=== PATIENT | male | born 1935 | race Caucasian/White ===

== ENCOUNTER 2019-11-09 11:11 | Inpatient (IN) ==
[2019-11-09] MEDS ORDERED: GUAIFENESIN/DEXTROM SYRUP 100MG/10MG 5ML UDC PO PRN (13:35)
[2019-11-09] MEDS ORDERED: ONDANSETRON INJ 2 MG/ML 2 ML VIAL IV PRN (13:35)
[2019-11-09] MEDS ORDERED: POLYETHYLENE (MIRALAX) 17 GM PACK PO PRN (13:35)
--- NOTE | 2019-11-09 13:44 | History & Physical Report ---
Date of Service November 09, 2019 Assessment & Plan (1) Aspiration pneumonia: Patient with suspected aspiration pneumonia versus pneumonitis. Presently afebrile, hemodynamically stable. He is hypoxic requiring supplemental oxygen currently 92% on oxygen mask 9 L. He does not appear to be volume overloaded on clinical exam. BNP within normal range at 365. ABG with hypoxia, pH = 7.43, PCO2 = 38, PO2 = 72 Admit to PCU Images from outside hospital sent to radiology to be loaded into our system. Patient has recent CT of the chest. Supplemental oxygen to maintain saturation greater than 92% Zosyn 4.5 g IV every 8 hours Robitussin 5 mL p.o. every 6 hours as needed Flutter valve 3 times daily -Patient is DNR/DNI per his wishes. This was confirmed with patient's sister at bedside during time of admission. She understands that patient's clinical condition may worsen. I explained to her that we may use NIPPV to support the patient through his current illness, but it is typically not preferred over intubation in case of aspiration with respiratory failure. Patient sister voiced understanding and states that she will continue to uphold patient's wishes and keep him DNR/DNI. Check VBG with a.m. labs Present on Admission?: Yes (2) Seizure: Patient with history of epilepsy. No recent seizures reported. Continue Keppra 500 mg p.o. twice daily Continue diazepam 5 mg p.o. twice daily Present on Admission?: Yes (3) Diabetes: Patient with reported history of diabetes. Not currently on any diabetic medication. Glucose = 182 Insulin sliding scale Continue to monitor Present on Admission?: Yes (4) Macrocytosis: Hgb = 14, HCT slightly low at 41.3. MCV elevated at 103.3. Patient is on vitamin B12 at home Check B12 level Continue supplementation 1000 mcg daily F/E/N -gentle IV fluids normal saline at 50 mL/h x 1 L, monitor electrolytes and replete as needed, patient given phosphorus repletion, n.p.o. for now. May advance diet when patient's respiratory status improves Prophylaxisheparin for DVT prophylaxis CodeDNR/DNI Dispositionadmit to PCU History of Present Illness Chief Complaint: Aspiration pneumonia, transferred from outside facility Primary Care Provider: NO PCP Cheryle De Souza is an 84-year-old male with history of diabetes, hyperlipidemia and epilepsy. He resides in a personal fci. On the morning of 11/05 he was found down on the floor, calling for help, and noted to be slightly confused. He was transported to an outside facility in [place] and was admitted for ambulatory dysfunction and presumed UTI. He was briefly treated with Rocephin for UTI. He had transient hypoxic episodes which was thought to be secondary to volume overload, therefore he was diuresed with Lasix. His hypoxia worsened yesterday through today, patient also febrile to 100.9. A CT of the chest was obtained today which was suggestive of aspiration pneumonia. The patient was treated with cefepime and Flagyl and was subsequently transferred to [facility] for pulmonary support. Upon arrival, patient mildly tachypneic saturating 92% on nonrebreather. He has no complaints. Specifically denies chest pain, palpitations, abdominal pain, nausea, vomiting, diarrhea, constipation Allergies Allergy/AdvReac Type Severity Reaction Status Date / Time No Known Allergies Allergy Unverified 11/09/19 14:50 Home Medications Home Medications Medication Instructions Recorded Confirmed Type Lactobacillus acidoph-L. bifid 2 tab PO BID 11/09/19 11/09/19 History Lasix 20 mg IV BID 11/09/19 11/09/19 History acetaminophen [Pain Relief] 650 mg PO Q6H PRN 11/09/19 11/09/19 History albuterol sulfate 2.5 mg INHALATION USEASDIRECTD PRN 11/09/19 11/09/19 History atorvastatin 80 mg PO HS 11/09/19 11/09/19 History cefepime in dextrose 5 % See Rx Instructions .ROUTE .COMPLEX 11/09/19 11/09/19 History cyanocobalamin (vitamin B-12) 1,000 mcg PO DAILY 11/09/19 11/09/19 History diazepam 5 mg PO BID 11/09/19 11/09/19 History enoxaparin [Lovenox] 40 mg SUBCUT DAILY 11/09/19 11/09/19 History haloperidol 0.5 mg PO DAILY 11/09/19 11/09/19 History levetiracetam 500 mg PO BID 11/09/19 11/09/19 History metronidazole in NaCl (iso-os) 500 mg IV Q8H 11/09/19 11/09/19 History polyethylene glycol 3350 [Miralax] 17 g PO DAILY PRN 11/09/19 11/09/19 History potassium chloride 40 meq PO DAILY 11/09/19 11/09/19 History tamsulosin 0.4 mg PO DAILY 11/09/19 11/09/19 History Past Med/Surg History Medical History (Updated 11/09/19 @ 22:10 by Awilda Quiroz DO) Aortic stenosis Diabetes Dyslipidemia Seizure Surgical History (Updated 11/09/19 @ 21:55 by Awilda Quiorz DO) History of ankle surgery Family History (Updated 11/09/19 @ 13:54 by Sri Weir RN) Other No history of previous surgery No known health problems Social History Preferred Language: Khmer Communication Ability: Effective 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 Beliefs That Will Affect Care: None Current Living Situation: Care Home Other Information That Helps Us Care for You: No Feels Safe at Home: Yes Safety Concerns: Feels Safe At This Time Smoking Status: Never smoker Hx Alcohol Use: No Hx Substance Use: No Review of Systems Review of Systems: All systems reviewed & are unremarkable except as noted in HPI & below Physical Exam Physical Exam: General: patient resting comfortably, NAD, non-toxic in appearance, AA&O to self and location Skin: warm, dry, intact, no rashes or lesions HEENT: NC/AT, left eye with disconjugate gaze, pupils irregular and nonreactive to light (sister states this is baseline), EOMI, anicteric sclera, conjunctiva without injection, external ear normal to inspection and nontender, nares patent, dry mucus membranes, dentition intact, no oropharyngeal lesions, neck supple, trachea midline, no LAD, no thyromegaly, no JVD Heart: +S1/S2, regular, no m/r/g Lungs: equal air entry bilaterally, coarse breath sounds in the right lung, + rhonchi Abd: +BS, soft, NT/ND, no masses/organomegaly/ascites, Silverio catheter in place with minimal dark urine in the bag Ext: warm, 2+ pulses in UE/LE bilaterally, no clubbing/cyanosis or edema Neuro: nonfocal, patient AA&O x 4, speech intact, no facial droop, moving all extremities on command with equal strength 5/5 Results & Data Vital Signs (Past 12 Hours) Vital Signs Height Weight Body Mass Index Blood Pressure Blood Pressure Position Temperature Temperature Source 5 ft 8 in 81.4 kg 27.3 105/67 Lying 36.9 C Axillary 11/09/19 13:32 11/09/19 13:32 11/09/19 13:32 11/09/19 19:25 11/09/19 19:25 11/09/19 19:25 11/09/19 19:25 Pulse Rate Respiratory Rate Pulse Oximetry Oxygen Flow Rate 98 H 20 92 9 11/09/19 19:25 11/09/19 19:25 11/09/19 19:25 11/09/19 19:25 Laboratory Results SINGLE VIEW CHEST CLINICAL HISTORY: Pneumonia. Cough and chest congestion. FINDINGS: An AP, portable, upright chest radiograph is compared to study dated 11/07/2019 and correlated with chest CT performed the same day 11/09/2019. The examination is degraded by portable technique and patient rotation. The heart is mildly enlarged noting atherosclerotic calcification of the thoracic aorta. There is dense bibasilar consolidation, right greater than left with associated pleural effusions. No pneumothorax is seen. The skeletal structures are osteopenic. The bony thorax is grossly intact. Degenerative change is noted in the thoracic spine. IMPRESSION: 1. Cardiomegaly without radiographic evidence of congestive failure. 2. There is bibasilar consolidation, right greater than left with small pleural effusions. ACT 112: Negative or not required by law. Electronically signed by: Juan Miguel Chandler M.D. 11/09/2019 2:54 PM Diagnostic Findings FROM OUTSIDE FACILITY: Chest CT 11/09/19 -Findings concerning for bibasilar aspiration PNA predominantly in RLL with non cleared secretions throughout the right lobe bronchus -Indeterminate pulmonary nodule projecting in the lingula measuring up to 9mm. Consider PET-CT or repeat CT in 6-12 weeks ECG Additional Comments: EKG with normal sinus rhythm at 94 bpm, left axis deviation, NH = 124, QRS = 104, QTC = 437, no acute ischemic changes Code Status & VTE Plan Code Status DNR/DNI VTE Prophylaxis Plan VTE Prophylaxis will be ordered: Yes PG Care Time/CCT Total # of Minutes Spent Total Time Spent with Patient: Total time spent is greater than 50% in coordination of care (as documented) at patient's floor/unit and/or counseling patient: (1) Aspiration pneumonia Aspiration pneumonia type: unspecified Laterality: right Lung location: lower lobe of lung Qualified Code(s): J69.0 - Pneumonitis due to inhalation of food and vomit (2) Diabetes Diabetes mellitus type: type 2 Diabetes mellitus model builder insulin use: without model builder use Diabetes mellitus complication status: without complication Qualified Code(s): E11.9 - Type 2 diabetes mellitus without complications
[2019-11-09 14:09] LABS: Basophils # (auto) 0.03 K/uL (0-0.2); Basophils % (auto) 0.3 %; Hematocrit (blood only) 41.3 % (42-52); Immature Granulocytes # (auto) 0.02 K/uL (0.00-0.02); Immature Granulocytes % (auto) 0.2 %; Lymphocytes # (auto) 1.19 K/uL (1.2-3.4); Lymphocytes % (auto) 11.6 %; Mean Corpuscular Hgb Conc 33.9 g/dL (32-36); Mean Corpuscular Volume 103.3 fL (80-100); Mean Platelet Volume 10.5 fL (7.4-10.4); Monocytes # (auto) 1.18 K/uL (0.11-0.59); Monocytes % (auto) 11.5 %; Neutrophils % (auto) 76.4 %; Platelet Count 173 K/uL (130-400); RDW Standard Deviation 49.5 fL (36.4-46.3); White Blood Count 10.22 K/uL (4.8-10.8)
[2019-11-09] MEDS ORDERED: ALBUTEROL 0.5% NEB SOLN 2.5 MG/0.5 ML VIAL NEB PRN (14:10)
[2019-11-09 14:11] LABS: Allen Test Pos (Pos); Base Excess ABG 0.7 mEq/L (-9-1.8); HCO3 ABG 25 mmol/L (19-24); Oxygen Saturation ABG 95.1 % (90-95); PCO2 ABG 38 mmHg (35-46); PO2 ABG 72 mm/Hg (80-95); pH ABG 7.43 (7.35-7.45)
[2019-11-09] MEDS ORDERED: PIPERACILL/TAZOBAC CONSULT ACTIVE PRN (14:16)
[2019-11-09 14:17] LABS: INR 1.2 (0.9-1.1); Prothrombin Time 12.2 Seconds (9.0-12.0)
[2019-11-09 14:27] LABS: Albumin Level 2.4 gm/dl (3.4-5.0); BUN Creatinine Ratio 33.7 (10-20); Bilirubin Direct 0.2 mg/dl (0-0.2); Calcium 8.8 mg/dl (8.5-10.1); Creatinine Clr Calc Pharmacy 44.1 ml/min; Est GFR (African American) 61.8; Est GFR (Non-African American) 53.3; Potassium 3.8 mmol/L (3.5-5.1)
[2019-11-09 14:29] LABS: Magnesium 2.3 mg/dl (1.8-2.4); Phosphorus 2.2 mg/dl (2.5-4.9)
[2019-11-09 14:32] LABS: Bilirubin,Total 0.9 mg/dl (0.2-1); Total Protein 6.7 gm/dl (6.4-8.2); Troponin I 0.033 ng/ml (0-0.045)
--- NOTE | 2019-11-09 14:55 | XRay Report ---
SINGLE VIEW CHEST CLINICAL HISTORY: Pneumonia. Cough and chest congestion. FINDINGS: An AP, portable, upright chest radiograph is compared to study dated 11/07/2019 and correla vanessa with chest CT performed the same day 11/09/2019. The examination is degraded by portable techniqu e and patient rotation. The heart is mildly enlarged noting atherosclerotic calcification of the thor acic aorta. There is dense bibasilar consolidation, right greater than left with associated pleural e ffusions. No pneumothorax is seen. The skeletal structures are osteopenic. The bony thorax is grossly intact. Degenerative change is noted in the thoracic spine. IMPRESSION: 1. Cardiomegaly without radiographic evidence of congestive failure. 2. There is bibasilar consolidation, right greater than left with small pleural effusions. ACT 112: Negative or not required by law. Electronically signed by: Juan Miguel Chandler M.D. 11/09/2019 2:54 PM
[2019-11-09] MEDS ORDERED: PIPERACILLIN/TAZOBACTAM 4.5 GM in DEXTROSE 5% 100 ML IV ONE (15:00)
[2019-11-09] MEDS ORDERED: NON-FORMULARY MEDICATION (Acetaminophen [Pain Relief] 650 MG) PO PRN (15:06)
[2019-11-09] MEDS ORDERED: POTASSIUM PHOS 3 MMOL/1 ML INFUSION IV STA (15:07)
[2019-11-09] MEDS ORDERED: PATIENT'S ALLERGY INFO NEEDS ENTERED SCH (15:30)
[2019-11-09] MEDS ORDERED: POTASSIUM PHOSPHATE 9 MMOL in SODIUM CHLORIDE 0.9% 250 ML IV ONE (16:00)
[2019-11-09] MEDS ORDERED: ALBUMIN 25% 50 ML IV ONE (16:00)
[2019-11-09] MEDS: HEPARIN SOD 5,000 UNIT/0.5 ML VIAL SQ SCH ×2 (16:07→20:44)
[2019-11-09] MEDS: levETIRAcetam 500 MG TAB PO SCH (17:37)
[2019-11-09] MEDS: LACTOBACILLUS ACIDOPHILUS (FLORANEX) TAB PO SCH ×2 (17:37→17:53)
[2019-11-09] MEDS: PIPERACILLIN/TAZOBACTAM 3.375 GM in DEXTROSE 5% 100 ML IV SCH (20:43)
[2019-11-09] MEDS: ATORVASTATIN 40 MG TAB PO SCH (20:44)
[2019-11-09] MEDS: diazePAM 5 MG TABLET PO SCH (20:44)
[2019-11-09] MEDS ORDERED: DEXTROSE 50% 50 ML SYRINGE IV PRN (22:13)
[2019-11-09] MEDS ORDERED: GLUCAGON FOR INJ 1 MG VIAL SQ PRN (22:13)
[2019-11-09] MEDS ORDERED: GLUCOSE 10 TABS/TUBE PO PRN (22:13)
[2019-11-09] MEDS ORDERED: GLUCOSE 40% GEL 15 GM TUBE PO PRN (22:13)
[2019-11-09] MEDS ORDERED: CARBOHYDRATES FOR HYPOGLYCEMIA PO PRN (22:13)
[2019-11-09] MEDS ORDERED: SODIUM CHLORIDE 0.9% 1000ML 1,000 ML IV SCH (22:15)
[2019-11-10] MEDS: INSULIN ASPART 100 UNITS/ML 3 ML PEN SC SCH ×5 (00:02→23:29)
[2019-11-10] MEDS: PIPERACILLIN/TAZOBACTAM 3.375 GM in DEXTROSE 5% 100 ML IV SCH ×3 (03:47→21:02)
[2019-11-10] MEDS: HEPARIN SOD 5,000 UNIT/0.5 ML VIAL SQ SCH ×3 (05:14→20:55)
[2019-11-10 07:20] LABS: pH VBG 7.43 (7.36-7.41)
[2019-11-10 07:49] LABS: Basophils # (auto) 0.02 K/uL (0-0.2); Basophils % (auto) 0.1 %; Eosinophils # (auto) 0.01 K/uL (0-0.5); Eosinophils % (auto) 0.1 %; Hematocrit (blood only) 38.3 % (42-52); Hemoglobin 12.9 g/dL (14.0-18.0); Immature Granulocytes # (auto) 0.04 K/uL (0.00-0.02); Immature Granulocytes % (auto) 0.3 %; Lymphocytes # (auto) 1.02 K/uL (1.2-3.4); Lymphocytes % (auto) 7.2 %; Mean Corpuscular Hemoglobin 35.4 pg (25-34); Mean Corpuscular Hgb Conc 33.7 g/dL (32-36); Mean Corpuscular Volume 105.2 fL (80-100); Mean Platelet Volume 10.7 fL (7.4-10.4); Monocytes % (auto) 9.1 %; Neutrophils # (auto) 11.82 K/uL (1.4-6.5); Neutrophils % (auto) 83.2 %; Platelet Count 186 K/uL (130-400); RDW Coefficient of Variation 13.3 % (11.5-14.5); RDW Standard Deviation 51.2 fL (36.4-46.3); Red Blood Count 3.64 M/uL (4.7-6.1); White Blood Count 14.21 K/uL (4.8-10.8)
[2019-11-10] MEDS: haloperidoL 0.5 MG TAB PO SCH (07:51)
[2019-11-10] MEDS: LACTOBACILLUS ACIDOPHILUS (FLORANEX) TAB PO SCH ×3 (07:51→15:23)
[2019-11-10] MEDS: levETIRAcetam 500 MG TAB PO SCH ×2 (07:51→15:23)
[2019-11-10] MEDS: CYANOCOBALAMIN 500 MCG TABLET (VITAMIN B-12) PO SCH (07:51)
[2019-11-10 07:53] LABS: BUN Creatinine Ratio 34.6 (10-20); Calcium 8.9 mg/dl (8.5-10.1); Creatinine Clr Calc Pharmacy 42.4 ml/min; Est GFR (African American) 58.9; Est GFR (Non-African American) 50.8; Potassium 3.9 mmol/L (3.5-5.1)
[2019-11-10] MEDS: diazePAM 5 MG TABLET PO SCH ×2 (07:53→21:02)
[2019-11-10 08:03] LABS: Thyroid Stimulating Hormone 0.256 uIu/ml (0.300-4.500)
[2019-11-10] MEDS ORDERED: ALBUT/IPRATROP 3MG/0.5MG NEB 3 ML VIAL NEB STA (08:52)
[2019-11-10] MEDS: ALBUT/IPRATROP 3MG/0.5MG NEB 3 ML VIAL NEB SCH ×4 (11:24→23:03)
--- NOTE | 2019-11-10 17:16 | Hospitalist Progress Note ---
Date of Service November 10, 2019 Assessment & Plan (1) Aspiration pneumonia: Dense right-sided pneumonia on imaging and exam. Continue Zosyn out of concern of aspiration. Speech eval and treat. Nebulizers, oxygen, supportive care, time. Of note he seems surprisingly asymptomatic for his degree of both relative and absolute hypoxia, begging the question of a chronic aspiration scenario where he has been running lower oxygen saturations that he would realize for quite a while. Follow this closely. Blood gases noted, no hypercapnia (2) Seizure: Patient with history of epilepsy. No seizures thus far with treatment/physiologic stress of pneumonia Continue Keppra 500 mg p.o. twice daily Continue diazepam 5 mg p.o. twice daily (3) Diabetes: Patient with reported history of diabetes. Not currently on any diabetic medication. Glucose = 182 Insulin sliding scale Glucose has thus far been acceptable, A1c pending (4) Macrocytosis: Hgb = 14, HCT slightly low at 41.3. MCV elevated at 103.3. Patient is on vitamin B12 at home B12 adequately replaced F/E/N -gentle IV fluids normal saline at 50 mL/h x 1 L, monitor electrolytes and replete as needed, patient given phosphorus repletion, n.p.o. for now. May advance diet when patient's respiratory status improves Prophylaxisheparin subcu for DVT prophylaxis CodeDNR/DNI Continue on PCU, he appears to be stabilizing, once he improves some we can start to work towards PT/OT and discharge planning. Subjective Seen multiple times throughout the day. Awake and alert. Denies shortness of breath even when in the high 80s on a nonrebreather. Does not have cough/sputum/wheezing/dyspnea. His only real complaint is whenever I follow-up in the afternoon he would like somebody to help him get up to go to the bathroom. No chest pain, no shortness of breath, no pain anywhere. Fortunately through the day his pulse ox is do show small improvements. Review of Systems Review of Systems: All systems reviewed & are unremarkable except as noted in HPI & below Physical Exam Physical Exam: In general he is awake and alert pleasant no distress, surprisingly given his respiratory status. HEENTnormocephalic atraumatic mucous membranes are moist, he has a large area on his left cheek that seems to be a large telangiectasia/hemangioma type structure. Cardio is distant slightly tachycardic. No rubs murmurs or gallops. Lungs markedly diminished throughout the right lung, clear in the left lung. No rales rhonchi or wheezes with good effort. No accessory muscle use. Just notably diminished throughout the right almost entirely. Abdomen soft nondistended nontender. Extremities show no cyanosis clubbing or edema. Results & Data Vital Signs (Past 12 Hours) Vital Signs Temp Pulse Pulse Resp BP Pulse Ox Pulse Ox 11/10/19 16:05 99.0 F 110 H 18 116/68 91 11/10/19 15:28 111 H 22 92 11/10/19 13:35 91 11/10/19 11:25 109 H 22 91 11/10/19 11:14 97.7 F 110 H 22 132/67 89 L 11/10/19 09:00 101 H 18 89 L 11/10/19 08:52 99.9 F H 105 H 22 100/62 88 L 11/10/19 08:03 97.9 F 103 H 20 119/65 91 11/10/19 08:00 95 H PG Care Time/CCT Total # of Minutes Spent Total Time Spent with Patient: Total time spent is greater than 50% in coordination of care (as documented) at patient's floor/unit and/or counseling patient: (1) Aspiration pneumonia Aspiration pneumonia type: unspecified Laterality: right Lung location: lower lobe of lung Qualified Code(s): J69.0 - Pneumonitis due to inhalation of food and vomit (2) Diabetes Diabetes mellitus type: type 2 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
[2019-11-10] MEDS ORDERED: OPTIRAY 320 125ml IV PRN (19:11)
--- NOTE | 2019-11-10 20:08 | CT Scan Report ---
CT ANGIOGRAM OF THE CHEST CLINICAL HISTORY: Hypoxia. COMPARISON STUDY: Chest x-ray dated 11/09/2019. Chest CT dated 11/09/2019. TECHNIQUE: Following the IV administration of 118 cc of Optiray 320, CT angiogram of the chest was pe rformed from the upper abdomen to the thoracic inlet utilizing the pulmonary embolus protocol. Images are reviewed in the axial, sagittal, and coronal planes. 3-D MIPS images are created and assessed. I V contrast was administered without complication. A dose lowering technique was utilized adhering to the principles of ALARA. The examination is degraded by motion artifact, as well as by streak artifa ct from the arms which could not be elevated above the chest. CT DOSE: 716.39 mGy.cm FINDINGS: Thyroid: The thyroid gland is enlarged and heterogeneous. Thoracic aorta: There is atherosclerotic calcification of the thoracic aorta, which is normal in [place] and demonstrates 4-vessel variant arch anatomy. No dissection is seen. Pulmonary vasculature: The pulmonary trunk is normal in caliber. There are no filling defects identif ied in main, lobar, or proximal segmental pulmonary branches to suggest pulmonary embolus. Evaluation of the peripheral branches is significantly degraded by motion artifact. Heart: The heart is enlarged and without pericardial effusion. The coronary arteries are densely calc ified. Lungs and pleural spaces: Evaluation of the lung parenchyma is compromised by motion artifact. There is dense airspace consolidation throughout the right lung with elevation of the right hemidiaphragm. There is only partial aeration at the right apex. Airspace consolidation and segmental atelectasis is seen in the left lower lobe. Minimal patchy consolidation is seen in the lingula. There is no pneumo thorax. Trace pleural effusion is seen on the left. Secretions/debris fills the right lower lobe airw ays. The trachea is clear. A 9 mm pulmonary nodule is seen in the lingula on image #66. Mediastinum: There are scattered subcentimeter mediastinal lymph nodes. Mandy: The right hilum is not well evaluated due to adjacent atelectasis. No left hilar adenopathy is seen. Axillae: There is no axillary lymphadenopathy. Upper abdomen: Partially visualized upper abdominal viscera is grossly unremarkable. Skeletal structures: The skeletal structures are osteopenic. Degenerative changes noted throughout th e thoracic spine and in the shoulders. No lytic or blastic bony lesions are seen. IMPRESSION: 1. Significantly streak and motion compromised examination. 2. There is no evidence of pulmonary embolus in the main, lobar, or proximal segmental pulmonary suraj camila. 3. Cardiomegaly. 4. There is dense airspace consolidation and volume loss seen throughout the right lung, which has si gnificantly progressed from yesterday. There is only minimally aerated lung at the right apex. Secret ions/debris is seen filling the right lower lobe airways. 5. Milder airspace consolidation is seen in the left lung with segmental atelectasis at the left lung base. 6. Findings are consistent with pneumonia/aspiration pneumonitis. Clinical correlation will be requir ed and follow-up to resolution is recommended. 7. There is a 9 mm pulmonary nodule in the lingula. This can be followed as per the Fleischner criter ia see below. Please refer to below summary of Fleischner criteria recommendations for follow-up of incidental CT n odules (Gab Stephen, Guidelines for management of small pulmonary nodules detected on CT scans: A sta tement from the Fleischner Society, Radiology 237: [id number].) SOLID NODULES Solitary nodule size: <6 mm * low risk patients: no follow-up needed * high risk patients: optional CT at 12 months Solitary nodule size: 6-8 mm * low risk patients: follow-up at 6-12 months, then consider further follow-up at 18-24 months * high risk patients: initial follow-up CT at 6-12 months and then at 18-24 months if no change Solitary nodule size: >8 mm * either low or high risk patients - consider follow-up CT at 3 months, and/or CT-PET, and/or biopsy Multiple nodules size: <6 mm * low risk patients: no routine follow-up * high risk patients: optional CT at 12 months Multiple nodules size: 6-8 mm * low risk patients: follow-up at 3-6 months, then consider further follow-up at 18-24 months * high risk patients: follow-up at 3-6 months, then at 18-24 months if no change Multiple nodules size: >8 mm * low risk patients: follow-up at 3-6 months, then consider further follow-up at 18-24 months * high risk patients: follow-up at 3-6 months, then at 18-24 months if no change Note: newly detected indeterminate nodule in persons 35 years of age or older. * low risk patients: minimal or absent history of smoking and/or other known risk factors * high risk patients: history of smoking or of other known risk factors (e.g. first degree relative with lung cancer, or exposure to asbestos, radon, uranium) * if a nodule up to 8 mm is partly solid or is ground glass further follow-up is required after 24 m onths to exclude possible slow growing adenocarcinoma (RAHAT) SUBSOLID NODULES Solitary pure ground-glass nodule * nodule size <6 mm - no CT follow-up required * nodule size >=6 mm - follow-up CT at 6-12 months, then every 2 years until 5 years Solitary part-solid nodule * nodule size <6 mm - no CT follow-up required * nodule size >=6 mm - follow-up CT at 3-6 months. If unchanged, and solid component remains <6 mm, then annual follow-up for 5 years Multiple subsolid nodules * nodule size <6 mm - follow-up CT at 3-6 months, consider further follow-up at 2 and 4 years if sta ble * nodule size >=6 mm - follow-up CT at 3-6 months, subsequent management based on the most suspiciou s nodule(s) ACT 112: Positive. There are findings on this exam that require communication between the performing entity and the patient following Patient Test Result Information Act ([place] Act 112) guidelines. Electronically signed by: Juan Miguel Chandler M.D. 11/10/2019 8:07 PM
[2019-11-10] MEDS: ATORVASTATIN 40 MG TAB PO SCH (20:54)
[2019-11-10] MEDS: LACTATED RINGER'S 1,000 ML IV SCH (20:54)
[2019-11-11] MEDS: ACETAMINOPHEN 325 MG TAB PO PRN ×2 (00:05→05:14)
[2019-11-11] MEDS: ALBUT/IPRATROP 3MG/0.5MG NEB 3 ML VIAL NEB SCH ×6 (03:15→22:03)
[2019-11-11] MEDS: PIPERACILLIN/TAZOBACTAM 3.375 GM in DEXTROSE 5% 100 ML IV SCH ×3 (03:52→19:51)
[2019-11-11] MEDS: HEPARIN SOD 5,000 UNIT/0.5 ML VIAL SQ SCH ×3 (05:10→22:34)
[2019-11-11] MEDS: INSULIN ASPART 100 UNITS/ML 3 ML PEN SC SCH ×3 (05:11→17:46)
[2019-11-11 05:56] LABS: Estimated Average Glucose 126 mg/dl
[2019-11-11] MEDS: levETIRAcetam 500 MG TAB PO SCH ×3 (08:12→15:54)
[2019-11-11] MEDS: LACTOBACILLUS ACIDOPHILUS (FLORANEX) TAB PO SCH ×4 (08:12→15:54)
[2019-11-11] MEDS: diazePAM 5 MG TABLET PO SCH ×2 (08:12→19:51)
[2019-11-11] MEDS: CYANOCOBALAMIN 500 MCG TABLET (VITAMIN B-12) PO SCH (08:12)
[2019-11-11] MEDS: haloperidoL 0.5 MG TAB PO SCH (08:12)
[2019-11-11 08:17] LABS: BUN Creatinine Ratio 35.3 (10-20); Calcium 8.8 mg/dl (8.5-10.1); Creatinine Clr Calc Pharmacy 40.8 ml/min; Est GFR (African American) 56.3; Est GFR (Non-African American) 48.5; Potassium 3.8 mmol/L (3.5-5.1)
[2019-11-11 09:59] LABS: Basophils # (auto) 0.03 K/uL (0-0.2); Basophils % (auto) 0.1 %; Eosinophils # (auto) 0.01 K/uL (0-0.5); Hematocrit (blood only) 39.3 % (42-52); Hemoglobin 12.8 g/dL (14.0-18.0); Immature Granulocytes # (auto) 0.12 K/uL (0.00-0.02); Immature Granulocytes % (auto) 0.6 %; Lymphocytes # (auto) 1.46 K/uL (1.2-3.4); Lymphocytes % (auto) 6.7 %; Mean Corpuscular Hemoglobin 35.1 pg (25-34); Mean Corpuscular Hgb Conc 32.6 g/dL (32-36); Mean Corpuscular Volume 107.7 fL (80-100); Mean Platelet Volume 10.6 fL (7.4-10.4); Monocytes # (auto) 1.45 K/uL (0.11-0.59); Monocytes % (auto) 6.7 %; Neutrophils % (auto) 85.9 %; Platelet Count 233 K/uL (130-400); RDW Coefficient of Variation 13.6 % (11.5-14.5); RDW Standard Deviation 53.4 fL (36.4-46.3); Red Blood Count 3.65 M/uL (4.7-6.1); White Blood Count 21.67 K/uL (4.8-10.8)
--- NOTE | 2019-11-11 11:12 | XRay Report ---
XR chest 1V portable HISTORY: Hypoxia. Pneumonia. COMPARISON: Chest CTA 11/10/2019. FINDINGS: Persistent volume loss and consolidation within the right mid to lower lung zone which has progressed. No pneumothorax. Suspect a small right pleural effusion. The heart remains enlarged. Mild gaseous distention of the stomach. Patchy left basilar densities are again noted. IMPRESSION: 1. Persistent volume loss within the right hemithorax with progressive right mid to lower lung zone a irspace opacities and a small right pleural effusion. This could be due to aspiration and possibly mu cous plugging. Recommend follow-up to ensure resolution. 2. Left basilar airspace opacities persist. ACT 112: Negative or not required by law. Electronically signed by: Clif Hirsch M.D. 11/11/2019 11:10 AM
[2019-11-11] MEDS: LACTATED RINGER'S 1,000 ML IV SCH (12:32)
--- NOTE | 2019-11-11 12:57 | Pulmonary Consultation ---
Date of Consultation November 11, 2019 Assessment & Plan (1) Acute hypoxemic respiratory failure: Reportedly and as documented, the patient is a DO NOT RESUSCITATE and DO NOT INTUBATE. He is very hypoxemic and has a large right lower lobe collapse that may potentially benefit from bronchoscopy. However, given his DO NOT INTUBATE status, I do not think it is ayala to proceed with bronchoscopy at this time as this could lead to further respiratory compromise. At this point after discussion with the nurse it does appear that he is refusing much of his care. I think it is prudent to get his family involved and perhaps focus on more palliative relief of symptoms. I do not think is unreasonable to continue antibiotics and percussive chest therapy. His procalcitonin was elevated to 1.76. I will order for repeat procalcitonin level tomorrow. I have also ordered for an MRSA screen. Recommend avoiding any sedatives given his respiratory failure and mental status. (2) Collapse of right lung: (3) Aspiration pneumonia: Aspiration pneumonia type: unspecified Laterality: right Lung location: lower lobe of lung Qualified Code(s): J69.0 - Pneumonitis due to inhalation of food and vomit (4) Acute encephalopathy: History of Present Illness Reason for Consultation: Hypoxemic respiratory failure with near opacification of the right lung. Attending Physician: Deniz Mercado History of Present Illness This is an 84-year-old male with a past medical history of macrocytosis, seizure, aortic stenosis and diabetes mellitus who presented to [facility] due to respiratory failure and was transferred to [facility] for further care. Patient is very difficult to understand and clearly has some degree of encephalopathy so the history is quite limited from the patient. I was able to review the medical records. It does appear that he lives in a personal prison. He was found down on 11/05 on the floor calling for help. He was transferred to [facility] under the presumption that he had a urinary tract infection. He had episodes of hypoxemia and underwent a CT chest at that point which demonstrated bilateral infiltrates which were particularly large on the right side. He was transferred here and underwent a repeat CT chest with contrast that was performed yesterday which demonstrated near complete opacification of the right lung. No evidence of pulmonary embolism was seen. He did receive a dose of cefepime and Flagyl at the outside facility. He is currently on Zosyn. He is laying in bed with no apparent distress at the moment. He is saturating 90% on 90% FiO2 and 40 L via the Vapotherm. He denies any chest pain. He is able to tell me that he fell. He is able to tell me that the year is 2019. There was no family at bedside. Allergies Allergy/AdvReac Type Severity Reaction Status Date / Time No Known Allergies Allergy Unverified 11/09/19 14:50 Home Medications Home Medications Medication Instructions Recorded Confirmed Type Lactobacillus acidoph-L. bifid 2 tab PO BID 11/09/19 11/09/19 History Lasix 20 mg IV BID 11/09/19 11/09/19 History acetaminophen [Pain Relief] 650 mg PO Q6H PRN 11/09/19 11/09/19 History albuterol sulfate 2.5 mg INHALATION USEASDIRECTD PRN 11/09/19 11/09/19 History atorvastatin 80 mg PO HS 11/09/19 11/09/19 History cefepime in dextrose 5 % See Rx Instructions .ROUTE .COMPLEX 11/09/19 11/09/19 History cyanocobalamin (vitamin B-12) 1,000 mcg PO DAILY 11/09/19 11/09/19 History diazepam 5 mg PO BID 11/09/19 11/09/19 History enoxaparin [Lovenox] 40 mg SUBCUT DAILY 11/09/19 11/09/19 History haloperidol 0.5 mg PO DAILY 11/09/19 11/09/19 History levetiracetam 500 mg PO BID 11/09/19 11/09/19 History metronidazole in NaCl (iso-os) 500 mg IV Q8H 11/09/19 11/09/19 History polyethylene glycol 3350 [Miralax] 17 g PO DAILY PRN 11/09/19 11/09/19 History potassium chloride 40 meq PO DAILY 11/09/19 11/09/19 History tamsulosin 0.4 mg PO DAILY 11/09/19 11/09/19 History Patient History Medical History Aortic stenosis Diabetes Dyslipidemia Seizure Surgical History History of ankle surgery Family History Other No history of previous surgery No known health problems Social History Preferred Language: Kyrgyz Communication Ability: Effective Concrete Vault Maker Required: No Beliefs That Will Affect Care: None Current Living Situation: Snf Other Information That Helps Us Care for You: No Feels Safe at Home: Yes Safety Concerns: Feels Safe At This Time Smoking Status: Never smoker Hx Alcohol Use: No Hx Substance Use: No Review of Systems Review of Systems: Unobtainable due to cognitive status Physical Exam Constitutional: Elderly-appearing male laying in bed. High flow nasal cannula in place. Very poor dentition. Eyes: PERRL, conjunctivae normal, anicteric sclerae ENMT: Ears: + hearing impairment Very poor dentition Neck: normal visual inspection Respiratory: Coarse rhonchi on the right. Tachypneic. Cardiovascular: Loud systolic flow murmur. Regular rate and rhythm. No edema. Gastrointestinal (Abdomen): normal bowel sounds, soft, nontender, no hepatosplenomegaly Musculoskeletal: no cyanosis or clubbing, extremities motor strength 5/5 Skin: Large port wine lesion on the face Neurologic: No focal deficits noted. He does appear a bit encephalopathic. He is able to tell me the year is 2019. He is also very difficult to understand. Lymphatic: no cervical or axillary lymphadenopathy Results & Data Vital Signs (Past 12 Hours) Vital Signs Temp Pulse Resp BP Pulse Ox 11/11/19 11:11 93 H 22 90 11/11/19 11:09 93 H 22 90 11/11/19 11:03 98.1 F 103 H 22 96/57 L 91 11/11/19 07:42 98.4 F 112 H 19 96/59 L 91 11/11/19 07:13 101 H 18 91 11/11/19 07:10 101 H 18 91 11/11/19 05:04 111 H 24 91 11/11/19 04:03 100.8 F H 114 H 24 106/62 95 11/11/19 03:15 108 H 22 90 PG Care Time/CCT Total # of Minutes Spent Total Time Spent with Patient: Total time spent is greater than 50% in coordination of care (as documented) at patient's floor/unit and/or counseling patient:
--- NOTE | 2019-11-11 19:17 | Palliative Care Progress Note ---
Date of Service November 11, 2019 Subjective Case discussed with Dr. Mercado. Patient is an 84 year old male who presented to the [facility] from a SNF with signs of aspiration which has been diagnosed with aspiration PNA, along with a RLL pneumothorax. The patient also has dementia and ambulatory dysfunction associated, and related to, his dementia. To proceed, a bronchoscopy would be the next step. The family has mentioned that the patient has had an overall decline in his quality of life and has multiple admissions recently at [facility]. The family mentioned they would like to discuss a more conservative approach. The patient is already a DNR. Palliative Care to see on Friday11/12/2019. Official consult to follow. Results & Data Vital Signs (Past 12 Hours) Vital Signs Temp Pulse Resp BP Pulse Ox 11/11/19 14:54 98 H 18 95 11/11/19 11:11 93 H 22 90 11/11/19 11:09 93 H 22 90 11/11/19 11:03 36.7 C 103 H 22 96/57 L 91 11/11/19 07:42 36.9 C 112 H 19 96/59 L 91 11/11/19 07:13 101 H 18 91 PG Care Time/CCT Total # of Minutes Spent Total Time Spent with Patient: Total time spent is greater than 50% in coordination of care (as documented) at patient's floor/unit and/or counseling patient:
[2019-11-11] MEDS: ATORVASTATIN 40 MG TAB PO SCH (19:51)
[2019-11-11] MEDS ORDERED: MoRPHine SULFATE 2 MG/ML CARP IV STA (22:36)
--- NOTE | 2019-11-11 23:05 | Hospitalist Progress Note ---
Date of Service November 11, 2019 Assessment & Plan (1) Aspiration pneumonia: Dense right-sided pneumonia on imaging and exam. Continue Zosyn out of concern of aspiration. Speech eval and treat. Nebulizers, oxygen, supportive care, time. Reviewed images and patient has a large infiltrate on the right lung, this is likely aspiration pneumonia. Patient also has significant right-sided lung compression and may benefit from bronchoscopy. However patient is a 4-year-old male poor quality of life prior to arrival to the hospital, I discussion with family and they do want to pursue aggressive measures. I explained the option of doing a bronchoscopy however patient would need to be intubated for this but patient is currently DNR/DNI and family wants to forego bronchoscopy at this time. Given that they feel it will only prolong his life, but not his quality. They are interested in a palliative care consult to discuss goals of care. Explained that patient will likely continue to deteriorate as his oxygen saturation is not improving and he is currently on 100% oxygen. Will continue antibiotics at this time. Consulted pulmonary, appreciate their input. (2) Seizure: Patient with history of epilepsy. No seizures thus far with treatment/physiologic stress of pneumonia Continue Keppra 500 mg p.o. twice daily Continue diazepam 5 mg p.o. twice daily (3) Diabetes: Patient with reported history of diabetes. Not currently on any diabetic medication. Glucose = 182 Insulin sliding scale Glucose has thus far been acceptable, (4) Macrocytosis: Hgb = 14, HCT slightly low at 41.3. MCV elevated at 103.3. Patient is on vitamin B12 at home B12 adequately replaced F/E/N -gentle IV fluids normal saline at 50 mL/h x 1 L, monitor electrolytes and replete as needed, patient given phosphorus repletion, n.p.o. for now. May advance diet when patient's respiratory status improves Prophylaxisheparin subcu for DVT prophylaxis CodeDNR/DNI Maged mendoza palliative care. For now, will continue in PCU. Subjective This is a pleasant 84-year-old male, who appears to be in no distress. Does not provide significant medical history. Does answer some of my questions. Reports he is feeling fine denies any shortness of breath. He states he feels comfortable. Patient does not go in greater detail. Review of Systems Review of Systems: Unobtainable due to cognitive status Physical Exam Physical Exam: General: patient resting comfortably, NAD, non-toxic in appearance, AA&O to self and location Skin: warm, dry, intact, no rashes or lesions HEENT: NC/AT, left eye with disconjugate gaze, pupils irregular and nonreactive to light, EOMI, anicteric sclera, conjunctiva without injection, external ear normal to inspection and nontender, nares patent, dry mucus membranes, dentition intact, no oropharyngeal lesions, neck supple, trachea midline, no LAD, no thyromegaly, no JVD Heart: +S1/S2, regular, no m/r/g Lungs: equal air entry bilaterally, decreased breath sounds in the right lung, Abd: +BS, soft, NT/ND, no masses/organomegaly/ascites, Silverio catheter in place with minimal dark urine in the bag Ext: warm, 2+ pulses in UE/LE bilaterally, no clubbing/cyanosis or edema Neuro: nonfocal, patient AA&O x 4, speech intact, no facial droop, moving all extremities on command with equal strength 5/5 Results & Data Vital Signs (Past 12 Hours) Vital Signs Temp Pulse Resp BP Pulse Ox 11/11/19 22:05 119 H 26 H 83 L 11/11/19 22:04 119 H 26 H 83 L 11/11/19 19:29 112 H 20 91 11/11/19 19:27 38.1 C H 102 H 18 106/62 92 11/11/19 14:54 98 H 18 95 11/11/19 11:11 93 H 22 90 11/11/19 11:09 93 H 22 90 PG Care Time/CCT Total # of Minutes Spent Total Time Spent with Patient: Total time spent is greater than 50% in coordination of care (as documented) at patient's floor/unit and/or counseling patient: (1) Diabetes Diabetes mellitus complication status: without complication Diabetes mellitus intermediate project manager insulin use: without retirement use Diabetes mellitus type: type 2 Qualified Code(s): E11.9 - Type 2 diabetes mellitus without complications (2) Aspiration pneumonia Aspiration pneumonia type: unspecified Laterality: right Lung location: lower lobe of lung Qualified Code(s): J69.0 - Pneumonitis due to inhalation of food and vomit
[2019-11-12] MEDS ORDERED: ACETAMINOPHEN 1,000 MG/100 ML VIAL IV PRN (00:20)
[2019-11-12] MEDS: INSULIN ASPART 100 UNITS/ML 3 ML PEN SC SCH ×2 (01:07→06:21)
[2019-11-12] MEDS: ALBUT/IPRATROP 3MG/0.5MG NEB 3 ML VIAL NEB SCH ×2 (02:33→07:14)
[2019-11-12] MEDS: PIPERACILLIN/TAZOBACTAM 3.375 GM in DEXTROSE 5% 100 ML IV SCH (03:58)
[2019-11-12] MEDS: LACTATED RINGER'S 1,000 ML IV SCH (04:00)
[2019-11-12] MEDS: HEPARIN SOD 5,000 UNIT/0.5 ML VIAL SQ SCH (06:22)
[2019-11-12 06:29] LABS: Hematocrit (blood only) 41.6 % (42-52); Hemoglobin 13.5 g/dL (14.0-18.0); Mean Corpuscular Hgb Conc 32.5 g/dL (32-36); Mean Corpuscular Volume 107.8 fL (80-100); Mean Platelet Volume 10.9 fL (7.4-10.4); Platelet Count 272 K/uL (130-400); RDW Coefficient of Variation 14.1 % (11.5-14.5); RDW Standard Deviation 55.7 fL (36.4-46.3); Red Blood Count 3.86 M/uL (4.7-6.1); White Blood Count 24.15 K/uL (4.8-10.8)
[2019-11-12] MEDS: haloperidoL 0.5 MG TAB PO SCH (10:14)
[2019-11-12] MEDS: levETIRAcetam 500 MG TAB PO SCH (10:14)
[2019-11-12] MEDS: LACTOBACILLUS ACIDOPHILUS (FLORANEX) TAB PO SCH (10:14)
[2019-11-12] MEDS: diazePAM 5 MG TABLET PO SCH (10:15)
[2019-11-12] MEDS: CYANOCOBALAMIN 500 MCG TABLET (VITAMIN B-12) PO SCH (10:15)
--- NOTE | 2019-11-12 11:20 | Palliative Care Progress Note ---
Date of Service November 12, 2019 Subjective Patient prior to consult being completed. Results & Data Vital Signs (Past 12 Hours) Vital Signs Temp Pulse Pulse Pulse Resp BP Pulse Ox 11/12/19 08:00 11/12/19 07:14 138 H 25 H 86 L 11/12/19 06:23 37.0 C 123 H 28 H 102/62 87 L 11/12/19 04:39 37.5 C 121 H 23 110/60 85 L 11/12/19 02:33 146 H 26 H 85 L 11/12/19 01:10 127 H 11/11/19 23:55 39.0 C H 121 H 21 134/80 87 L Pulse Ox 11/12/19 08:00 81 L 11/12/19 07:14 11/12/19 06:23 11/12/19 04:39 11/12/19 02:33 11/12/19 01:10 11/11/19 23:55 PG Care Time/CCT Total # of Minutes Spent Total Time Spent with Patient: Total time spent is greater than 50% in coordination of care (as documented) at patient's floor/unit and/or counseling patient:
--- NOTE | 2019-11-17 22:32 | Discharge Summary ---
Date of Service November 12, 2019 Admission HPI Per Admitting Provider Cheryle De Souza is an 84-year-old male with history of diabetes, hyperlipidemia and epilepsy. He resides in a personal fci. On the morning of 11/05 he was found down on the floor, calling for help, and noted to be slightly confused. He was transported to an outside facility in [place] and was admitted for ambulatory dysfunction and presumed UTI. He was briefly treated with Rocephin for UTI. He had transient hypoxic episodes which was thought to be secondary to volume overload, therefore he was diuresed with Lasix. His hypoxia worsened yesterday through today, patient also febrile to 100.9. A CT of the chest was obtained today which was suggestive of aspiration pneumonia. The patient was treated with cefepime and Flagyl and was subsequently transferred to [facility] for pulmonary support. Upon arrival, patient mildly tachypneic saturating 92% on nonrebreather. He has no complaints. Specifically denies chest pain, palpitations, abdominal pain, nausea, vomiting, diarrhea, constipation Principal Diagnosis Aspiration pneumonia Discharge Exam No pupillary reflex, no response to pain, no gag reflex, no pulse, no heart beat, no spontaneous breath sounds heard. Discharge Data Allergies Allergy/AdvReac Type Severity Reaction Status Date / Time No Known Allergies Allergy Unverified 11/09/19 14:50 Consultations 11/11/19 10:17 Consult Pulmonology Routine 11/11/19 16:12 Consult Palliative Care Routine Ordered Studies 11/10/19 19:06 CT angio chest PE protocol Stat Hospital Course (1) Aspiration pneumonia: Dense right-sided pneumonia on imaging and exam. Continue Zosyn out of concern of aspiration. Speech eval and treat. Nebulizers, oxygen, supportive care, time. Reviewed images and patient has a large infiltrate on the right lung, this is likely aspiration pneumonia. Patient also has significant right-sided lung compression and may benefit from bronchoscopy. However patient is a 4-year-old male poor quality of life prior to arrival to the hospital, I discussion with family and they do want to pursue aggressive measures. I explained the option of doing a bronchoscopy however patient would need to be intubated for this but patient is currently DNR/DNI and family wants to forego bronchoscopy at this time. Given that they feel it will only prolong his life, but not his quality. They are interested in a palliative care consult to discuss goals of care. Explained that patient will likely continue to deteriorate as his oxygen saturation is not improving and he is currently on 100% oxygen. Will continue antibiotics at this time. Consulted pulmonary, appreciate their input. On 11/12/19 at approximately 10:30; patient ceased to breath. Plan was to transition to comfort measures later in the day. Family was at bedside. Refused autopsy. Ansered all of the family's questions/ (2) Seizure: Patient with history of epilepsy. No seizures thus far with treatment/physiologic stress of pneumonia Continue Keppra 500 mg p.o. twice daily Continue diazepam 5 mg p.o. twice daily (3) Diabetes: Patient with reported history of diabetes. Not currently on any diabetic medication. Glucose = 182 Insulin sliding scale Glucose has thus far been acceptable, (4) Macrocytosis: Hgb = 14, HCT slightly low at 41.3. MCV elevated at 103.3. Patient is on vitamin B12 at home B12 adequately replaced F/E/N -gentle IV fluids normal saline at 50 mL/h x 1 L, monitor electrolytes and replete as needed, patient given phosphorus repletion, n.p.o. for now. May advance diet when patient's respiratory status improves Prophylaxisheparin subcu for DVT prophylaxis Total Time Total Time Spent Total Time Spent (In Minutes): 28 Discharge Plan Discharge Items Patient Disposition: Reason For Visit: ASPIRATION PNEUMONIA Follow-up/Referrals: Arden Dhillon [Primary Care Provider] - Admission Data Admit Date/Time: 11/09/19 13:28 Other DC Date/Time DO NOT enter until pt leaves facility: 11/12/19 10:30
== END 2019-11-12 10:30 | disposition expired | DRG 177 ==
LOC: 2S 13:28 → SUATTDRO 13:28